=== PATIENT | female | born 1990 | race Caucasian/White ===

== ENCOUNTER 2018-12-30 06:59 | Emergency (ER) | payer BC ==
[2018-12-30 07:41] LABS: HEMATOCRIT 40.4 % (37.0-47.0); HEMOGLOBIN 13.8 g/dL (12.5-16.0); MEAN CELL VOLUME 88 fl (78-100); MEAN CORPUSCULAR HEMOGLOBIN 30 pg (27-31); MEAN CORPUSCULAR HGB CONC 34 g/dL (33-37); MEAN PLATELET VOLUME 10.2 fl (7.4-10.4); PLATELET COUNT 226 K/mm3 (130-400); RED BLOOD COUNT 4.58 M/mm3 (4.10-5.30); RED CELL DISTRIBUTION WIDTH 13.2 % (11.5-14.5); WHITE BLOOD COUNT 10.9 K/mm3 (4.8-10.8)
[2018-12-30] MEDS ORDERED: FLAGYL500 M1 PO (07:42)
[2018-12-30] MEDS ORDERED: MULTI VITAMINS1 TAB PO (07:42)
[2018-12-30 07:55] LABS: ALBUMIN 4.3 g/dL (3.5-5.0); POTASSIUM 3.8 mmol/L (3.5-5.1)
[2018-12-30 07:56] LABS: CALCIUM 9.2 mg/dL (8.3-10.5)
[2018-12-30 07:59] LABS: TOTAL BILIRUBIN 0.4 mg/dL (0.2-1.2)
[2018-12-30 08:07] LABS: LYMPHOCYTE 9 % (20-51); MONOCYTE 6 % (3-10); NEUTROPHILS 85 % (42-75)
[2018-12-30 09:50] LABS: URINE APPEARANCE CLEAR; URINE COLOR YELLOW
[2018-12-30 09:51] LABS: URINE BILIRUBIN NEGATIVE (NEGATIVE); URINE BLOOD NEGATIVE (NEGATIVE); URINE GLUCOSE NEGATIVE (NEGATIVE); URINE KETONE NEGATIVE (NEGATIVE); URINE LEUKOCYTE ESTERASE NEGATIVE (NEGATIVE); URINE NITRATE NEGATIVE (NEGATIVE); URINE PROTEIN(semi-quant) TRACE mg/dL (NEGATIVE); URINE UROBILINOGEN NORMAL (NORMAL); URINE WBC 0-1 /hpf (0-3)
[2018-12-30 11:39] VITALS: BP 168/73
== END 2018-12-30 11:40 | disposition short-term general hospital (02) ==
LOC: ED 06:59
PROVIDERS: Family Medicine
DX: K37 Unspecified appendicitis (principal); Z90.49 Acquired absence of other specified parts of digestive tract; Z97.5 Presence of (intrauterine) contraceptive device
CPT/HCPCS: J1885; J2405; J3490; J7030; Q9967